=== PATIENT | male | born 1950 | race African-American/Black ===

== ENCOUNTER 2018-12-15 09:38 | Emergency (ER) | payer MEDICARE, MEDICAID ==
[~2018-12-15] VITALS: Ht 172.7 cm; Wt 117.0 kg
[~2018-12-15 09:38] MED LIST: CARV3.1242 PO; LEVOTHYROXINE
[2018-12-15 12:49] LABS: BASOPHILS % 0.6 % (0.0-2.0); EOSINOPHILS % 1.5 % (0.0-5.0); HEMATOCRIT. 40.2 % (42.0-52.0); HEMOGLOBIN. 13.3 g/dL (14.0-18.0); LYMPHOCYTES % 16.2 % (20.0-50.0); MEAN CORPUSCULAR HEMOGLOBIN 26.6 pg (28.0-32.0); MEAN CORPUSCULAR VOLUME 80.5 fL (80.0-94.0); MEAN PLATELET VOLUME 10.7 fl (7.4-10.4); MONOCYTES % 8.8 % (2.0-8.0); NEUTROPHILS % 72.9 % (40.0-76.0); PLATELET 118 x1000/uL (130-400); RED BLOOD CELL COUNT 4.99 mill/uL (4.7-6.1); RED CELL DISTRIBUTION WIDTH 15.3 % (11.6-14.6)
[2018-12-15 12:53] LABS: CHLORIDE 108 mEq/L (98-107)
[2018-12-15 12:58] LABS: INR 1.1; PROTHROMBIN TIME 11.4 sec (9.1-11.1)
[2018-12-15 13:37] VITALS: BP 125/82
== END 2018-12-15 13:49 | disposition home or self-care (01) ==
LOC: ER 09:38
DX: K59.00 Constipation, unspecified (principal); K62.5 Hemorrhage of anus and rectum; D72.829 Elevated white blood cell count, unspecified; R03.0 Elevated blood-pressure reading, without diagnosis of hypertension; I51.9 Heart disease, unspecified; E11.8 Type 2 diabetes mellitus with unspecified complications
CPT/HCPCS: 36415; 82962; 86850; 86900; 99283

== ENCOUNTER 2019-10-28 19:15 | Inpatient (IN) | payer MEDICARE, MEDICAID ==
[~2019-10-28] VITALS: Ht 175.3 cm; Wt 113.2 kg
[2019-10-29] VITALS (7 sets, daily range): BP systolic 115–128; BP diastolic 54–81
[2019-10-29] MEDS ORDERED: ASPIRIN 81MG TABLET PO ONE (00:15)
[2019-10-29 00:53] LABS: BASOPHILS % 1.2 % (0.0-2.0); EOSINOPHILS % 3.8 % (0.0-5.0); HEMATOCRIT. 40.1 % (42.0-52.0); HEMOGLOBIN. 13.2 g/dL (14.0-18.0); LYMPHOCYTES % 17.4 % (20.0-50.0); MEAN CORPUSCULAR HEMOGLOBIN 26.4 pg (28.0-32.0); MEAN CORPUSCULAR VOLUME 80.4 fL (80.0-94.0); MEAN PLATELET VOLUME 10.3 fl (7.4-10.4); MONOCYTES % 8.3 % (2.0-8.0); NEUTROPHILS % 69.3 % (40.0-76.0); PLATELET 107 x1000/uL (130-400); RED BLOOD CELL COUNT 4.99 mill/uL (4.7-6.1); RED CELL DISTRIBUTION WIDTH 16.2 % (11.6-14.6)
[2019-10-29 01:03] LABS: CHLORIDE 107 mEq/L (98-107); INR 1.1; PROTHROMBIN TIME 11.6 sec (9.6-11.0)
[2019-10-29] MEDS ORDERED: FUROSEMIDE 20MG/2ML VIAL IVP ONE (01:45)
[2019-10-29] MEDS ORDERED: ENOXAPARIN 100MG/ML SYR SUBCUT ONE (01:45)
[2019-10-29] MEDS ORDERED: IPRATROPIUM/ALBUTEROL 0.5-3(2.5)MG/3ML NEB NEB PRN (06:00)
[2019-10-29] MEDS ORDERED: MAGNESIUM/ALUMINUM HYDROXIDE/SIMETHICONE 30ML UDC PO PRN (06:00)
[2019-10-29] MEDS ORDERED: LORAZEPAM 2MG/ML CPJ IV PRN (06:00)
[2019-10-29] MEDS ORDERED: DOCUSATE SODIUM 100MG CAPSULE PO PRN (06:00)
[2019-10-29] MEDS ORDERED: CLONIDINE 0.1MG TABLET PO PRN (06:00)
[2019-10-29] MEDS ORDERED: DIPHENHYDRAMINE 50MG/ML VIAL IV PRN (06:00)
[2019-10-29] MEDS ORDERED: ACETAMINOPHEN 325MG TABLET PO PRN (06:00)
[2019-10-29] MEDS ORDERED: HYDROCODONE/ACETAMINOPHEN 5/325MG TABLET PO PRN (06:00)
[2019-10-29] MEDS ORDERED: NA PHOS,M-B/NA PHOS,DI-BA ENEMA 118ML PR PRN (06:00)
[2019-10-29] MEDS ORDERED: ONDANSETRON HCL 4MG/2ML INJ IV PRN (06:00)
[2019-10-29] MEDS ORDERED: MORPHINE SULFATE 2 MG/ML CPJ (NOT FOR IM USE) IV PRN (06:00)
[2019-10-29 06:34] LABS: CHLORIDE 108 mEq/L (98-107)
[2019-10-29] MEDS: LEVOFLOXACIN 500MG PREMIX 100 ML IV SCH (12:14)
[2019-10-29] MEDS: FUROSEMIDE 40MG/4ML VIAL IV SCH (12:15)
[2019-10-29] MEDS: ASPIRIN 81MG EC TABLET PO SCH (12:15)
[2019-10-29] MEDS: METOPROLOL TARTRATE 25MG TABLET PO SCH ×2 (12:15→20:39)
[2019-10-29] MEDS ORDERED: REGADENOSON 0.4 MG/5 ML IV NR (14:00)
[2019-10-30] VITALS (13 sets, daily range): BP systolic 95–144; BP diastolic 37–94
[2019-10-30] MEDS ORDERED: DEXTROSE 50% WATER 50ML SYRINGE IV PRN (04:15)
[2019-10-30 07:16] LABS: CHLORIDE 108 mEq/L (98-107)
[2019-10-30 07:18] LABS: BASOPHILS % 0.7 % (0.0-2.0); EOSINOPHILS % 5.2 % (0.0-5.0); HEMATOCRIT. 37.2 % (42.0-52.0); HEMOGLOBIN. 12.6 g/dL (14.0-18.0); LYMPHOCYTES % 19.7 % (20.0-50.0); MEAN CORPUSCULAR HEMOGLOBIN 26.9 pg (28.0-32.0); MEAN CORPUSCULAR VOLUME 79.7 fL (80.0-94.0); MEAN PLATELET VOLUME 10.5 fl (7.4-10.4); MONOCYTES % 8.6 % (2.0-8.0); NEUTROPHILS % 65.8 % (40.0-76.0); PLATELET 105 x1000/uL (130-400); RED BLOOD CELL COUNT 4.67 mill/uL (4.7-6.1); RED CELL DISTRIBUTION WIDTH 15.8 % (11.6-14.6)
[2019-10-30] MEDS: INSULIN LISPRO 100 UNITS/ML SUBCUT SCH ×4 (07:20→21:00)
[2019-10-30] MEDS: BLOOD SUGAR DIAGNOSTIC STRIP TEST SCH ×4 (07:21→21:29)
[2019-10-30 07:32] LABS: LDL CHOLESTEROL 131 mg/dL (5-100)
[2019-10-30 07:35] LABS: HDL CHOLESTEROL 23 mg/dL (40-59)
[2019-10-30] MEDS ORDERED: TRAM50TA3 PO (07:52)
[2019-10-30] MEDS ORDERED: CODE30TA2 PO (07:52)
[2019-10-30] MEDS ORDERED: ASPI-1393 MT (07:54)
[2019-10-30] MEDS ORDERED: [UNRECOGNIZED DRUG - CODE] PO (07:54)
[2019-10-30] MEDS: METOPROLOL TARTRATE 25MG TABLET PO SCH ×2 (09:16→21:31)
[2019-10-30] MEDS: ASPIRIN 81MG EC TABLET PO SCH (09:16)
[2019-10-30] MEDS: FUROSEMIDE 40MG/4ML VIAL IV SCH (09:16)
[2019-10-30] MEDS: ENOXAPARIN 30MG/0.3ML SYR SUBCUT SCH ×2 (09:24→21:29)
[2019-10-30] MEDS: LEVOFLOXACIN 500MG PREMIX 100 ML IV SCH (09:25)
[2019-10-30] MEDS: GUAIFENESIN 200MG/10ML SUGAR FREE UDC PO PRN ×3 (11:12→21:32)
[2019-10-30] MEDS ORDERED: REGADENOSON 0.4 MG/5 ML IV ONE (11:28)
[2019-10-31] VITALS (9 sets, daily range): BP systolic 99–130; BP diastolic 39–80
[2019-10-31] MEDS: BLOOD SUGAR DIAGNOSTIC STRIP TEST SCH ×2 (06:45→11:40)
[2019-10-31] MEDS: INSULIN LISPRO 100 UNITS/ML SUBCUT SCH ×2 (07:20→11:40)
[2019-10-31 07:41] LABS: BASOPHILS % 0.7 % (0.0-2.0); EOSINOPHILS % 1.9 % (0.0-5.0); HEMOGLOBIN. 13.3 g/dL (14.0-18.0); LYMPHOCYTES % 16.7 % (20.0-50.0); MEAN CORPUSCULAR VOLUME 79.5 fL (80.0-94.0); MEAN PLATELET VOLUME 10.3 fl (7.4-10.4); MONOCYTES % 8.6 % (2.0-8.0); NEUTROPHILS % 72.1 % (40.0-76.0); PLATELET 143 x1000/uL (130-400); RED BLOOD CELL COUNT 4.91 mill/uL (4.7-6.1); RED CELL DISTRIBUTION WIDTH 16.2 % (11.6-14.6)
[2019-10-31 07:58] LABS: CHLORIDE 105 mEq/L (98-107)
[2019-10-31] MEDS: ENOXAPARIN 30MG/0.3ML SYR SUBCUT SCH (08:00)
[2019-10-31] MEDS: GUAIFENESIN 200MG/10ML SUGAR FREE UDC PO PRN (08:53)
[2019-10-31] MEDS: FUROSEMIDE 40MG/4ML VIAL IV SCH (08:54)
[2019-10-31] MEDS: METOPROLOL TARTRATE 25MG TABLET PO SCH (08:54)
[2019-10-31] MEDS: ASPIRIN 81MG EC TABLET PO SCH (08:54)
[2019-10-31] MEDS ORDERED: LEVOFLOXACIN 500MG PREMIX 100 ML IV SCH (11:00)
== END 2019-10-31 16:11 | disposition home or self-care (01) | DRG 280 ==
LOC: ER 19:15 → EDBEDREQTM 10-29 02:37 → EDBEDREQSVC 10-29 02:37 → EDBEDREQ 10-29 02:37 → ENRESERV 10-29 07:40 → 3WST 10-29 08:54
PROVIDERS: ADMIT Internal Medicine; ATTEND Internal Medicine
DX: I21.4 Non-ST elevation (NSTEMI) myocardial infarction (principal); J96.00 Acute respiratory failure, unspecified whether with hypoxia or hypercapnia; I50.43 Acute on chronic combined systolic (congestive) and diastolic (congestive) heart failure; E46 Unspecified protein-calorie malnutrition; E11.40 Type 2 diabetes mellitus with diabetic neuropathy, unspecified; G47.33 Obstructive sleep apnea (adult) (pediatric); E66.9 Obesity, unspecified; I25.10 Atherosclerotic heart disease of native coronary artery without angina pectoris; I11.0 Hypertensive heart disease with heart failure; M19.90 Unspecified osteoarthritis, unspecified site
CPT/HCPCS: 36415; 71045; 78452; 80048; 80061; 82962; 83880; 84439; 84443; 84484; 93005; 93017; 93306; 99291; A9500; J1650; J1940; J1956; J2405; J2785